=== PATIENT | female | born 1975 | race Two or more races ===

== ENCOUNTER 2020-04-25 11:34 | Outpatient (REF) | payer OTHER, SELFPAY ==
[2020-04-25 13:58] LABS: MANUAL DIFF FLAG NO
[2020-04-25 14:09] LABS: Basophils Percent Auto 0.6 % (0-2); Eosinophils Absolute Auto 0.2 X10*3/uL (0.0-0.4); Eosinophils Percent Auto 2.5 % (0-4); Hematocrit 38.7 % (37-47); Hemoglobin 12.3 g/dl (12.0-16.0); Imm Gran Abs Auto 0.02 X10*3/uL (0.00-0.03); Imm Gran Pct Auto 0.3 % (0.0-0.4); Lymphocytes Absolute Auto 2.4 X10*3/uL (1.2-4.9); Lymphocytes Percent Auto 35.4 % (20-40); Mean Corpuscular HGB Conc 31.8 g/dl (31.0-35.0); Mean Corpuscular Volume 94.4 fL (80-98); Monocytes Absolute Auto 0.4 X10*3/uL (0.1-1.2); Neutrophils Absolute Auto 3.8 X10*3/uL (2.0-8.3); Neutrophils Percent Auto 55.2 % (45-73); Platelet Count 259 X10*3/uL (160-400); White Blood Count 6.8 X10*3/uL (4.8-10.8)
[2020-04-25 14:37] LABS: Alanine Aminotransferase 9 U/L (0-31); Albumin Level 4.3 g/dL (3.5-5.0); Alkaline Phosphatase 57 U/L (39-117); Anion Gap 10 (12-20); Aspartate Amino Transferase 13 U/L (5-31); Bilirubin Direct < 0.2 mg/dL (0.0-0.5); Bilirubin Total 0.2 mg/dL (0.0-1.0); Blood Urea Nitrogen 13 mg/dL (9-16); Carbon Dioxide 31 mmol/L (22-29); Chloride 102 mmol/L (96-108); Estimated Glomerular Filt Rate > 60; Glucose Random 80 mg/dL (60-115); Potassium 4.2 mmol/l (3.3-5.1); Rheumatoid Factor < 15.0 IU/mL (<15.0); Sodium 139 mmol/L (135-145); Total Protein 7.1 g/dL (6.5-8.0)
[2020-04-25 14:45] LABS: Ferritin 25 ng/mL (10-250)
[2020-04-25 15:05] LABS: Erythrocyte Sedimentation Rate 5 MM/HR (0-20)
[2020-04-26 05:37] LABS: Lyme Abs Screen <0.90 index
[2020-04-29 13:02] LABS: Vitamin D 25-OH, D2 <4 ng/mL; Vitamin D 25-OH, D3 32 ng/mL; Vitamin D 25-OH, Total 32 ng/mL (30-100)
== END 2020-04-25 11:35 | disposition home or self-care (01) ==
LOC: HO.HMGCLDS 11:34
PROVIDERS: PCP Internal Medicine; Visit Provider Internal Medicine
DX: M19.90 Unspecified osteoarthritis, unspecified site (principal); Z82.61 Family history of arthritis
CPT/HCPCS: 36415; 80048; 80076; 82306; 82728; 85025; 85652; 86431; 86618

== ENCOUNTER 2021-04-11 13:15 | Outpatient (REF) | payer OTHER, SELFPAY ==
[2021-04-11 15:43] LABS: COVID-19 Test Positive (Negative)
== END 2021-04-11 13:16 | disposition home or self-care (01) ==
LOC: HO.LAB 13:15
PROVIDERS: Visit Provider Internal Medicine
DX: Z20.822 Contact with and (suspected) exposure to COVID-19 (principal)
CPT/HCPCS: 87635; C9803

== ENCOUNTER 2021-05-16 14:05 | Outpatient (REF) | payer OTHER, SELFPAY ==
[2021-05-17 03:39] LABS: CT PCR NOT DETECTED (Not Detect.); NG PCR NOT DETECTED (Not Detect.)
[2021-05-17 09:21] LABS: BV Int Neg Control Negative (Negative); BV Int Pos Control Positive (Positive)
[2021-05-19 04:12] LABS: HPV mRNA E6/E7 rflx Not Detected (Not Detected)
== END 2021-05-16 14:06 | disposition home or self-care (01) ==
LOC: HO.LAB 14:05
PROVIDERS: Visit Provider Advanced Practice Midwife
DX: Z01.419 Encounter for gynecological examination (general) (routine) without abnormal findings (principal); Z11.51 Encounter for screening for human papillomavirus (HPV); Z20.2 Contact with and (suspected) exposure to infections with a predominantly sexual mode of transmission
CPT/HCPCS: 87480; 87491; 87510; 87591; 87624; 87660; 88142

== ENCOUNTER 2021-12-05 03:37 | Emergency (ER) | payer OTHER, SELFPAY ==
[2021-12-05 03:46] VITALS: BP 128/74; PULSE 69; RESP 21; TEMP 36.8; O2SAT 98; BMI 26.4
--- NOTE | 2021-12-05 04:13 | ED.BACK ---
HPI - Back Pain/Injury General Chief Complaint: Back Pain/Injury Stated Complaint: Back pain Time Seen by Provider: 12/05/21 03:57 Source: patient and other (Significant other, Dl who works here as a mobile security specialist) Mode of arrival: wheelchair Limitations: no limitations History of Present Illness HPI Narrative: 46-year-old female who presents emergency department for evaluation of lower back pain with pain radiating down both legs. 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 The patient states she had to squat down for approximately 10 minutes. When she stood up she developed immediate pain in her lower back. She states that the pain is been constant since onset and is gotten progressively worse. She states the pain is a sharp pain is currently 10/10. The pain does radiate down both legs to her feet. She states she does feel weakness in both of her legs and is having difficulty walking secondary to her pain. She states she gets infrequent back pain but had similar lower back pain radiating down both legs approximately 2 years prior. She denied loss of bowel or bladder control she denied being ill in any way prior to squatting down. She states that she has had occasional chills but denied fevers. She denied rhinorrhea, sore throat, cough, chest pain, shortness of breath. She denied loss of bowel or bladder control. She did take naproxen and ibuprofen with no relief of her discomfort. MD elicited complaint: back pain and back injury Pertinent past history: prior back pain (Infrequent back pain, similar episode 2 years prior) Onset (ago): day(s) (2) Timing: constant Severity: severe Pain scale (0-10): 10 Similar Symptoms Previously: Yes (2 years prior) Quality: sharp Location: lumbar spine Radiation: left leg below the knee and right leg below the knee Exacerbating factors: movement, sitting upright and walking Relieving factors: none Context: bending (Squatting for 10 minutes, at work during an active shooter drill) Associated symptoms: weakness, difficulty walking and chills Work related injury: Yes Related Data Home Medications Medication Instructions Recorded Confirmed fexofenadine [Sandra Allergy] PO DAILY 01/30/21 10/31/21 Previous Rx's Medication Instructions Recorded cyclobenzaprine 5 mg tablet 5 mg PO BEDTIME 30 days #30 tabs 01/30/21 metronidazole 500 mg tablet 500 mg PO BID 7 days #14 tabs 05/18/21 cyclobenzaprine 5 mg tablet 5 mg PO TID PRN muscle spasm or 12/05/21 pain #14 tabs morphine 15 mg immediate release 15 mg PO Q4-6H PRN pain #14 tabs 12/05/21 tablet Allergies Allergy/AdvReac Type Severity Reaction Status Date / Time No Known Allergies Allergy Verified 12/05/21 03:50 [No Known Allergies*] Review of Systems Review of Systems: Yes all other systems are reviewed and are negative REPLACED BY [facility] Past Medical History REPLACED BY [facility] Narrative: Past medical history: None. Past surgical history: Bilateral tubal ligation. 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 She denies tobacco use. She occasionally drinks alcohol. She denies drug use. Surgical History History of breast implant History of tubal ligation Status post dilatation and curettage Family History Family History Father No problems noted. Mother No problems noted. Son No problems noted. Daughter No problems noted. Maternal Aunt Diabetes mellitus Social History Social History Housing: House Patient Tobacco Use Status: Never used Tobacco e-Cigarette/Vaping Use: Never Used Second Hand Smoke Exposure: No Advance Directives: No Current occupational status: employed Cognitive needs: No Hearing needs: No Vision needs: Yes Physical Exam Vital Signs: Vital Signs: Last Vital Signs Temp 98.2 F 12/05/21 03:46 Pulse 69 12/05/21 03:46 Resp 21 H 12/05/21 03:46 BP 128/74 12/05/21 03:46 Pulse Ox 98 12/05/21 03:46 O2 Del Method 12/05/21 03:46 BMI result Body Mass Index 26.4 Const: Other: Awake, alert, female patient, pleasant, cooperative she appears to be in distress secondary to her back pain HEENT: Head: Yes normal to inspection, Yes normocephalic and Yes atraumatic Ears: external ears normal General nose exam: Normal external nose present Face and sinus: Yes normal facial exam Mouth: Normal oral and palatal mucosa present Throat: Yes posterior oropharynx normal Eyes: General: appearance normal, both eyes and all related structures Pupils: Equal, round and reactive pupils present Neck: Neck: Yes normal visual inspection, Yes no lymphadenopathy, Yes trachea midline and Yes supple Chest: Chest palpation & inspection: normal inspection of the chest and normal palpation of entire chest wall Resp: Effort & Inspection: normal respiratory effort and able to speak in complete sentences Auscultation: clear to auscultation bilaterally Cardio: Rate: regular rate Rhythm: regular rhythm Heart sounds: S1 normal heart sound present, S2 normal heart sound present and no murmurs GI: Inspection: Yes normal to inspection Palpation (GI): Soft to palpation, nontender and no guarding Auscultation: normal bowel sounds Back/Spine/Pelvis: Other: Patient has tenderness palpation of her paraspinal muscles lumbar sacral area, there is no point tenderness with palpation over her lower vertebrae, she does have significant tenderness with palpation over her SI joints bilaterally. She does have increased pain with bilateral straight leg raise. Skin: General skin exam: no rashes or lesions noted Neuro: Cranial nerves: Yes CN's II-XII intact bilaterally and Yes Equal, round and reactive pupils present Cognition (Neuro): normal cognition Motor exam (neuro): Other motor observations present (Upper ext strength is normal, lower extremity strength is limited pain) Extrem: General: Yes normal to inspection Psych: Appearance: grossly normal Speech and movement: Normal speech and movement present Affect: normal affect Attitude: cooperative Thought process: Normal thought process present Thought content: Normal thought content present Course Course Course Narrative: 46-year-old female who presents emergency department for evaluation of 2 days of lower back pain, the pain started yesterday while she was at work, and occurred when she stood up from a squatting position when she was participating an active shooter drill. Patient's pain got progressively worse and is now 10/10. Patient has tenderness palpation of her paraspinal muscles lumbar sacral area with increased tenderness over her SI joints bilaterally. She also has positive straight leg raise bilaterally. Differential includes but is not limited to musculoskeletal strain, SI joint injury, disc injury pain. Patient was treated with Toradol 30 mg IV and morphine 4 mg IV. Ice was also applied to her lower back. 0531: Patient got some relief with the above treatment, her pain went from 10/10 to 8/10. She was ordered to get a 2nd dose of morphine 4 mg IV with Zofran 4 mg IV. She was also ordered to get cyclobenzaprine 5 mg orally. 0621: The patient is feeling significant better the above treatment. Patient was advised to take Tylenol and ibuprofen and for pain not relieved by these 2 medications she was prescribed morphine. She is also given prescription for cyclobenzaprine. Patient was given printed and verbal instructions discharged home. She was also given a work note. Discharge Plan Discharge Clinical Impression: Lumbar radicular pain Lumbar back sprain Qualifiers: Encounter type: initial encounter Qualified Code(s): S33.5XXA - Sprain of ligaments of lumbar spine, initial encounter Instructions: Acute Low Back Pain (ED), Lumbar Radiculopathy (ED) Additional Instructions: Back Pain Discharge Instructions: Take Motrin (ibuprofen) 200 mg pills, 2 pills every 6 hours as needed for pain. Take Tylenol (acetaminophen) 500 mg pills, 2 pills every 6 hours as needed for pain. For pain not relieved by ibuprofen or Tylenol take morphine 15 mg pills, 1 pill every 4 hours as needed for pain. This medication will make you sleepy, do not drive or work while taking this medication. Morphine is a narcotic medication and can be addicting. If you are concerned about addiction you can ask the pharmacist for less pills or do not get this prescription filled. Take Flexeril (cyclobenzaprine) 10 mg pills, 1 pill every 8 hours as needed for pain or muscle spasm. This is a prescription medication. This medication will make you sleepy, therefore do not drive or work while taking this medication. Apply ice for 15 minutes to the area that hurts on your back for 15 minutes. Do this 4-6 times a day to help reduce the pain in your back. Continue with normal activities as tolerated since staying in bed and not moving around will make your pain worse. You can also try over the counter lidocaine patches as directed on the box to help with the pain. Please return to the Emergency Department or see your doctor immediately if your symptoms get worse or if you develop any new symptoms that are concerning you. Follow up with your doctor in 2 day. Please read the other printed discharge instructions on back pain. Prescriptions: New morphine 15 mg tablet 15 mg PO Q4-6H PRN (Reason: pain) Qty: 14 0RF Rx Instructions: Patient may request partial fill; Partial Fill upon patient request. cyclobenzaprine 5 mg tablet 5 mg PO TID PRN (Reason: muscle spasm or pain) Qty: 14 0RF No Action metronidazole 500 mg tablet 500 mg PO BID 7 Days Qty: 14 0RF Rx Instructions: Take with food, Avoid alcohol and vinegar products fexofenadine [Sandra Allergy] PO DAILY cyclobenzaprine 5 mg tablet 5 mg PO BEDTIME 30 Days Qty: 30 0RF
[2021-12-05] MEDS: Morphine Sulfate 4 MG/ML CARTRIDGE IVPUSH ×2 (04:29→05:35)
[2021-12-05] MEDS: Ketorolac Tromethamine 15 MG/ML VIAL 30 MG IVPUSH (04:29)
[2021-12-05] MEDS: ondansetron HCL 4 MG/2 ML VIAL IVPUSH (05:35)
[2021-12-05] MEDS: Cyclobenzaprine HCl 5 MG TABLET PO (05:35)
[2021-12-05 06:00] VITALS: BP 99/56; PULSE 59; O2SAT 98
== END 2021-12-05 07:02 | disposition home or self-care (01) ==
PROVIDERS: Emergency Provider Emergency Medicine Emergency Medical Services; PCP Internal Medicine
DX: M54.50 Low back pain, unspecified (principal); Z79.899 Other long term (current) drug therapy
CPT/HCPCS: 96374; 96375; 96376; 99283; 99284; J1885; J2270; J2405

== ENCOUNTER 2022-03-02 09:11 | Outpatient (REF) | payer OTHER, SELFPAY ==
[2022-03-02 09:58] LABS: MANUAL DIFF FLAG NO
[2022-03-02 10:12] LABS: Basophils Percent Auto 0.4 % (0-2); Eosinophils Absolute Auto 0.1 X10*3/uL (0.0-0.4); Eosinophils Percent Auto 2.5 % (0-4); Hematocrit 36.6 % (37.0-47.0); Imm Gran Abs Auto 0.02 X10*3/uL (0.00-0.03); Imm Gran Pct Auto 0.4 % (0.0-0.4); Lymphocytes Absolute Auto 0.8 X10*3/uL (1.2-4.9); Lymphocytes Percent Auto 15.4 % (20-40); Mean Corpuscular HGB Conc 32.8 g/dl (31.0-35.0); Mean Corpuscular Hemoglobin 30.4 pg (27.0-33.0); Mean Corpuscular Volume 92.7 fL (80.0-98.0); Mean Platelet Volume 9.9 fL (9.4-12.3); Monocytes Absolute Auto 0.5 X10*3/uL (0.1-1.2); Monocytes Percent Auto 10.1 % (2-11); Neutrophils Absolute Auto 3.8 x10*3/uL (2.0-8.3); Neutrophils Percent Auto 71.2 % (45-73); Platelet Count 223 X10*3/uL (160-400); Red Blood Count 3.95 X10*6/uL (4.20-5.50); Red Cell Distribution Width 13.2 % (11.0-16.0); White Blood Count 5.3 X10*3/uL (4.8-10.8)
[2022-03-02 10:26] LABS: Estimated Average Glucose 105 mg/dL; Hemoglobin A1c % 5.3 %
[2022-03-02 11:01] LABS: Alanine Aminotransferase 12 U/L (0-31); Albumin Level 3.9 g/dL (3.5-5.0); Alkaline Phosphatase 50 U/L (39-117); Anion Gap 12 (12-20); Aspartate Amino Transferase 12 U/L (5-31); Bilirubin Total 0.3 mg/dL (0.0-1.0); Blood Urea Nitrogen 13 mg/dL (9-16); Calcium 8.9 mg/dL (8.4-10.2); Carbon Dioxide 25 mmol/L (22-29); Chloride 102 mmol/L (96-108); Cholesterol 181 mg/dL; Estimated Glomerular Filt Rate > 60; Ferritin 37 ng/mL (10-250); Glucose Fasting 96 mg/dL (60-99); HDL Cholesterol 62 mg/dL; LDL Cholesterol Calculated 104 mg/dl; Sodium 135 mmol/L (135-145); TSH reflex Free T4 1.28 uIU/mL (0.32-4.0); Total Protein 6.6 g/dL (6.5-8.0); Triglycerides 77 mg/dL
[2022-03-02 11:13] LABS: Vitamin B12 497 pg/mL (200-900)
== END 2022-03-02 09:12 | disposition home or self-care (01) ==
LOC: HO.LAB 09:11
PROVIDERS: PCP Internal Medicine; Visit Provider Internal Medicine
DX: Z00.01 Encounter for general adult medical examination with abnormal findings (principal); E66.3 Overweight; R20.2 Paresthesia of skin; Z91.09 Other allergy status, other than to drugs and biological substances
CPT/HCPCS: 36415; 80053; 80061; 82607; 82728; 83036; 84443; 85025

== ENCOUNTER 2022-03-20 09:11 | Outpatient (REF) | payer OTHER, SELFPAY ==
--- NOTE | ~2022-03-20 | MM_ITS ---
EXAMINATION: MM SCREENING DIGITAL BREAST TOMOSYNTHESIS, BILATERAL CLINICAL INFORMATION: Screening. Asymptomatic. The lifetime risk of breast cancer based on the Tyrer-Cuzick Model is 18%. COMPARISON: Mammography: 08/16/2017 (baseline) TECHNIQUE: Digital mammography is performed in craniocaudal and mediolateral oblique views along with computer-aided detection (CAD). Digital breast tomosynthesis is performed in implant-displaced craniocaudal and implant-displaced mediolateral oblique views along with computer-aided detection (CAD). Synthesized 2D images are generated from the tomosynthesis. FINDINGS: The breasts are heterogeneously dense, which may obscure small masses (ACR BI-RADS breast composition Category c). There are bilateral implants. Implant contours are smooth. The parenchymal pattern is similar to prior exam. There is stable nodular asymmetry posterior medial left breast on CC view. No developing density or architectural abnormality. Scattered bilateral benign round calcifications anterior breasts again noted. No abnormal calcifications. The axilla and skin contours are unremarkable. No significant changes. MM/MM tomosynthesis screen imp BI IMPRESSION: No mammographic evidence of malignancy. ASSESSMENT: BI-RADS 2: Benign RECOMMENDATION: Routine annual mammography screening. This patient's information was entered into a reminder system with a target due date for their next mammogram.
== END 2022-03-20 09:12 | disposition home or self-care (01) ==
LOC: HO.MAMMO 09:11
PROVIDERS: PCP Internal Medicine; Visit Provider Internal Medicine
DX: Z12.31 Encounter for screening mammogram for malignant neoplasm of breast (principal)
CPT/HCPCS: 77063; 77067

== ENCOUNTER 2022-05-15 11:42 | Outpatient (REF) | payer OTHER, SELFPAY ==
--- NOTE | 2022-05-15 09:30 | EMG_ITS ---
Please see scanned EMG / Nerve Conduction Report. MTDD
== END 2022-05-15 11:43 | disposition home or self-care (01) ==
LOC: HO.NEURO 11:42
PROVIDERS: PCP Internal Medicine; Visit Provider Internal Medicine
DX: R20.2 Paresthesia of skin (principal)
CPT/HCPCS: 95885; 95909

== ENCOUNTER → 2022-07-02 07:31 | Outpatient (BNVA) | payer OTHER, SELFPAY | PROVIDERS: PCP Internal Medicine; Visit Provider Psychiatry & Neurology Neurology | DX: Z13.89 Encounter for screening for other disorder (principal) ==

== ENCOUNTER 2022-07-29 13:46 | Emergency (ER) | payer OTHER, SELFPAY ==
--- NOTE | ~2022-07-29 | XR_ITS ---
EXAMINATION: XR CHEST CLINICAL INFORMATION: Syncope. COMPARISON: None available. TECHNIQUE: 2 views of the chest were obtained. FINDINGS: No significant abnormality is noted involving the heart, lungs, mediastinum, bony thorax or soft tissues. XR/XR chest 2V IMPRESSION: Unremarkable examination.
[2022-07-29 14:27] VITALS: BP 131/73; PULSE 87; RESP 16; TEMP 36.9; O2SAT 100; BMI 26.1
--- NOTE | 2022-07-29 14:30 | ECG_ITS ---
Test Reason : syncopee Blood Pressure : / mmHG Vent. Rate : 083 BPM Atrial Rate : 083 BPM P-R Int : 164 ms QRS Dur : 106 ms QT Int : 398 ms P-R-T Axes : 048 008 -13 degrees QTc Int : 467 ms Sinus rhythm with artifact Poor data quality No previous ECGs available Referred By: Generic ED Physician Electronically Signed By:Devin Del Angel
--- NOTE | 2022-07-29 15:01 | ED.SYNCOPE ---
HPI - Syncope General Chief Complaint: Syncope Stated Complaint: fall l arm inj Time Seen by Provider: 07/29/22 14:37 Source: patient Mode of arrival: ambulatory Limitations: no limitations History of Present Illness HPI narrative: Patient is a 47-year-old female presenting after syncopal episode last night. Patient reports that she had just finished going to the bathroom and was sitting on the toilet when she had a syncopal episode. Patient states that her significant other was home and heard her. She reports that afterwards she was diaphoretic and clammy. She also reports 2 episodes of vomiting last night and 1 episode of vomiting this morning. She denies any abdominal pain, diarrhea, or constipation. She reports that her daughter recently had vomiting and diarrhea as well. She denies any chest pain, shortness of breath, headache, back pain, or calf pain. She denies any history of DVT or PE. She denies any previous episodes of syncope. She denies any feeling of dizziness or lightheadedness prior to syncopal episode. She reports that for the past 3 days she has had left lateral neck pain radiating up to her left ear, down her left shoulder and left arm to her elbow. She denies any falls, injury, or trauma preceding her neck pain. She denies any numbness or tingling to her left arm. She has been taking 400 mg of ibuprofen every 4 hours for her neck pain with little relief. Related Data Home Medications Medication Instructions Recorded Confirmed fexofenadine [Sandra Allergy] PO DAILY 01/30/21 02/22/22 fluticasone propionate 50 1 spray intranasal DAILY 07/02/22 mcg/actuation nasal spray,suspension multivitamin 1 tab PO DAILY 07/02/22 Previous Rx's Medication Instructions Recorded gabapentin 100 mg capsule See Rx Instructions PO BEDTIME #90 07/02/22 caps lidocaine 5 % topical patch 1 patch topical DAILY neck pain 07/29/22 #15 ea methocarbamol 500 mg tablet 500 mg PO Q8H PRN neck spasms #12 07/29/22 tabs ondansetron 4 mg disintegrating 4 mg PO Q8H PRN nausea and 07/29/22 tablet vomiting #12 tabs prednisone 20 mg tablet 40 mg PO DAILY #10 tabs 07/29/22 Allergies Allergy/AdvReac Type Severity Reaction Status Date / Time Seasonal Allergies Allergy Mild Sneezing Verified 07/29/22 13:02 Review of Systems Review of Systems: Yes all other systems are reviewed and are negative [facility] Past Medical History Medical History (Updated 07/29/22 @ 16:48 by Gertrude Charles NP) Nocturnal leg cramps Surgical History History of breast implant History of tubal ligation Status post dilatation and curettage Family History Family History Father No problems noted. Mother No problems noted. Son No problems noted. Daughter No problems noted. Maternal Aunt Diabetes mellitus Social History Social History Housing: House Alcohol intake: never Patient Tobacco Use Status: Never used Tobacco Smoked in Last 30 Days: No e-Cigarette/Vaping Use: Never Used Second Hand Smoke Exposure: No Use of substances other than those prescribed or required for medical reasons: No Advance Directives: No Advance Directives Information Provided: Yes Patient : No Current occupational status: employed Cognitive needs: No Hearing needs: No Vision needs: Yes Physical Exam Vital Signs: Vital Signs: Last Vital Signs Temp 98.5 F 07/29/22 14:27 Pulse 84 07/29/22 15:42 Resp 16 07/29/22 14:27 BP 122/78 07/29/22 15:42 Pulse Ox 94 07/29/22 15:35 O2 Del Method Room Air 07/29/22 15:35 BMI result Body Mass Index 26.1 Appearance: Alert. Oriented X3. No acute distress. Head: normocephalic, atraumatic. Eyes: Pupils equal, round and reactive to light. ENT: Pharynx normal. No tonsillar swelling or exudate. Neck: Normal inspection. Neck supple. No midline c-spine tenderness. CVS: Normal heart rate and rhythm. Pulses normal. Respiratory: No respiratory distress. Breath sounds normal. Abdomen: Soft and nontender. +BS x4 Skin: Skin warm and dry. Normal skin color. Normal skin turgor. No rashes. Extremities: Tenderness to left lateral neck and trapezius. Full range of motion to left shoulder and elbow. DTRs 2+ bilaterally. No lower extremity edema. No joint swelling. Neuro/psych: Oriented X 3. No motor deficit. No sensory deficit. CN II-XII intact. Normal speech and cognition. Medical Decision Making Medical Decision Making [facility] Narrative: 47-year-old female presenting after syncopal episode last night, also complaining of 3 days of left lateral neck and shoulder pain radiating down left upper arm to elbow. Considered ACS, arrhythmia, vasovagal episode, metabolic derangement, anemia, orthostatic hypotension, . Considered PE, less likely, PERC negative. Considered subarachnoid hemorrhage, less likely as patient denies headache. Ukrainian Syncope Risk Score very low. Workup in the ER to this point all negative, likely vasovagal episode. Patient discharged home and advised to follow up with PCP. Will treat cervical radiculopathy with short course of prednisone, robaxin, and lidocaine patches. Advised patient to continue use of ibuprofen per package instructions as well as ice and gentle stretching exercises. Differential Diagnosis Differential Diagnoses: The differential diagnosis associated with the presentation includes See above note. Admission/Observation Consideration of admission/observation: Escalation of care including admission/observation considered Ukrainian Syncope Risk Score -2 (very low) Lab Data [facility] Lab Attestation statement: I reviewed the patient's lab results. 07/29/22 15:16 07/29/22 15:16 Labs: Lab Results 07/29/22 07/29/22 07/29/22 Range/Units 15:16 15:16 15:16 WBC 7.3 (4.8-10.8) X10*3/uL RBC 4.35 (4.20-5.50) X10*6/uL Hgb 13.0 (12.0-16.0) g/dl Hct 39.5 (37.0-47.0) % MCV 90.8 (80.0-98.0) fL MCH 29.9 (27.0-33.0) pg MCHC 32.9 (31.0-35.0) g/dl RDW 13.0 (11.0-16.0) % Plt Count 230 (160-400) X10*3/uL MPV 9.7 (9.4-12.3) fL Immature Gran % (Auto) 0.1 (0.0-0.4) % Neut % (Auto) 87.1 H (45-73) % Lymph % (Auto) 8.7 L (20-40) % Richardson % (Auto) 3.9 (2-11) % Eos % (Auto) 0.1 (0-4) % Baso % (Auto) 0.1 (0-2) % Lymph # (Auto) 0.6 L (1.2-4.9) X10*3/uL Richardson # (Auto) 0.3 (0.1-1.2) X10*3/uL Eos # (Auto) 0.0 (0.0-0.4) X10*3/uL Baso # (Auto) 0.0 (0.0-0.2) X10*3/uL Abs Immat Gran (auto) 0.01 (0.00-0.03) X10*3/uL Absolute Neuts (auto) 6.3 (2.0-8.3) x10*3/uL Absolute Nucleated RBC 0.000 (0.0-0.012) X10*3/uL Nucleated RBC % (auto) 0.0 (0.0-0.2) /100WBC Sodium 138 (135-145) mmol/L Potassium 4.0 (3.3-5.1) mmol/L Chloride 104 (96-108) mmol/L Carbon Dioxide 27 (22-29) mmol/L Anion Gap 11 L (12-20) BUN 18 H (9-16) mg/dL Creatinine 0.82 (0.5-1.4) mg/dL Estim Creat Clear Calc 80.8 Estimated GFR > 60 Random Glucose 101 (60-115) mg/dL Calcium 8.8 (8.4-10.2) mg/dL Magnesium 1.9 (1.6-2.6) mg/dL Total Bilirubin 0.7 (0.0-1.0) mg/dL Direct Bilirubin 0.2 (0.0-0.5) mg/dL AST 13 (5-31) U/L ALT 10 (0-31) U/L Alkaline Phosphatase 52 (39-117) U/L Troponin I High Sens (<3.5-17.0) ng/L Total Protein 6.6 (6.5-8.0) g/dL Albumin 4.1 (3.5-5.0) g/dL Urine Color Urine Appearance Urine pH (5.0-9.0) Ur Specific Mclean (1.005-1.025) Urine Protein (Neg-Trace) mg/dL Urine Glucose (UA) (Negative) mg/dL Urine Ketones (Negative) mg/dL Urine Blood (Negative) Urine Nitrite (Negative) Ur Leukocyte Esterase (Negative) Urine Test (NEGATIVE) COVID-19 (JESSICA) (Negative) COVID-19 Clin Com Influenza Type A (SUZETTE) (Negative) Influenza Type B (SUZETTE) (Negative) Influenza A & B Note 07/29/22 07/29/22 07/29/22 Range/Units 15:16 15:18 15:18 WBC (4.8-10.8) X10*3/uL RBC (4.20-5.50) X10*6/uL Hgb (12.0-16.0) g/dl Hct (37.0-47.0) % MCV (80.0-98.0) fL MCH (27.0-33.0) pg MCHC (31.0-35.0) g/dl RDW (11.0-16.0) % Plt Count (160-400) X10*3/uL MPV (9.4-12.3) fL Immature Gran % (Auto) (0.0-0.4) % Neut % (Auto) (45-73) % Lymph % (Auto) (20-40) % Richardson % (Auto) (2-11) % Eos % (Auto) (0-4) % Baso % (Auto) (0-2) % Lymph # (Auto) (1.2-4.9) X10*3/uL Richardson # (Auto) (0.1-1.2) X10*3/uL Eos # (Auto) (0.0-0.4) X10*3/uL Baso # (Auto) (0.0-0.2) X10*3/uL Abs Immat Gran (auto) (0.00-0.03) X10*3/uL Absolute Neuts (auto) (2.0-8.3) x10*3/uL Absolute Nucleated RBC (0.0-0.012) X10*3/uL Nucleated RBC % (auto) (0.0-0.2) /100WBC Sodium (135-145) mmol/L Potassium (3.3-5.1) mmol/L Chloride (96-108) mmol/L Carbon Dioxide (22-29) mmol/L Anion Gap (12-20) BUN (9-16) mg/dL Creatinine (0.5-1.4) mg/dL Estim Creat Clear Calc Estimated GFR Random Glucose (60-115) mg/dL Calcium (8.4-10.2) mg/dL Magnesium (1.6-2.6) mg/dL Total Bilirubin (0.0-1.0) mg/dL Direct Bilirubin (0.0-0.5) mg/dL AST (5-31) U/L ALT (0-31) U/L Alkaline Phosphatase (39-117) U/L Troponin I High Sens < 2.7 (<3.5-17.0) ng/L Total Protein (6.5-8.0) g/dL Albumin (3.5-5.0) g/dL Urine Color Urine Appearance Urine pH (5.0-9.0) Ur Specific Mclean (1.005-1.025) Urine Protein (Neg-Trace) mg/dL Urine Glucose (UA) (Negative) mg/dL Urine Ketones (Negative) mg/dL Urine Blood (Negative) Urine Nitrite (Negative) Ur Leukocyte Esterase (Negative) Urine Test (NEGATIVE) COVID-19 (JESSICA) Negative (Negative) COVID-19 Clin Com See Note Influenza Type A (SUZETTE) Negative (Negative) Influenza Type B (SUZETTE) Negative (Negative) Influenza A & B Note See Note 07/29/22 07/29/22 Range/Units 15:55 15:55 WBC (4.8-10.8) X10*3/uL RBC (4.20-5.50) X10*6/uL Hgb (12.0-16.0) g/dl Hct (37.0-47.0) % MCV (80.0-98.0) fL MCH (27.0-33.0) pg MCHC (31.0-35.0) g/dl RDW (11.0-16.0) % Plt Count (160-400) X10*3/uL MPV (9.4-12.3) fL Immature Gran % (Auto) (0.0-0.4) % Neut % (Auto) (45-73) % Lymph % (Auto) (20-40) % Richardson % (Auto) (2-11) % Eos % (Auto) (0-4) % Baso % (Auto) (0-2) % Lymph # (Auto) (1.2-4.9) X10*3/uL Richardson # (Auto) (0.1-1.2) X10*3/uL Eos # (Auto) (0.0-0.4) X10*3/uL Baso # (Auto) (0.0-0.2) X10*3/uL Abs Immat Gran (auto) (0.00-0.03) X10*3/uL Absolute Neuts (auto) (2.0-8.3) x10*3/uL Absolute Nucleated RBC (0.0-0.012) X10*3/uL Nucleated RBC % (auto) (0.0-0.2) /100WBC Sodium (135-145) mmol/L Potassium (3.3-5.1) mmol/L Chloride (96-108) mmol/L Carbon Dioxide (22-29) mmol/L Anion Gap (12-20) BUN (9-16) mg/dL Creatinine (0.5-1.4) mg/dL Estim Creat Clear Calc Estimated GFR Random Glucose (60-115) mg/dL Calcium (8.4-10.2) mg/dL Magnesium (1.6-2.6) mg/dL Total Bilirubin (0.0-1.0) mg/dL Direct Bilirubin (0.0-0.5) mg/dL AST (5-31) U/L ALT (0-31) U/L Alkaline Phosphatase (39-117) U/L Troponin I High Sens (<3.5-17.0) ng/L Total Protein (6.5-8.0) g/dL Albumin (3.5-5.0) g/dL Urine Color Yellow Urine Appearance Clear Urine pH 5.5 (5.0-9.0) Ur Specific Mclean 1.015 (1.005-1.025) Urine Protein Negative (Neg-Trace) mg/dL Urine Glucose (UA) Negative (Negative) mg/dL Urine Ketones Negative (Negative) mg/dL Urine Blood Negative (Negative) Urine Nitrite Negative (Negative) Ur Leukocyte Esterase Negative (Negative) Urine Test NEGATIVE (NEGATIVE) COVID-19 (JESSICA) (Negative) COVID-19 Clin Com Influenza Type A (SUZETTE) (Negative) Influenza Type B (SUZETTE) (Negative) Influenza A & B Note Independent Interpretation I performed an independent interpretation of an: EKG and Plain X-Ray Interpretation: Normal sinus rhythm, rate of 77bpm, normal MT interval, normal QT interval, no ST segment elevation. I independently reviewed the chest x-ray and agree with the radiologist's interpretation. Radiology Impression Discussion of test interpretation with radiology: I have reviewed the radiologist's reading. Radiologist Impression: FINDINGS: No significant abnormality is noted involving the heart, lungs, mediastinum, bony thorax or soft tissues. XR/XR chest 2V IMPRESSION: Unremarkable examination. Tests considered The following testing was considered but not selected: Considered CT head but deferred as patient has normal neuro exam without focal findings, denies headache. Considered CT cervical spine, no midline C-spine tenderness, no injury or trauma. Prescription Management I considered prescription management with: Pain Medication Treating cervical radiculopathy with prednisone and robaxin. Discharge Plan Discharge Clinical Impression: Syncope, vasovagal, Cervical radiculopathy Patient Disposition: Home, Self-Care Instructions: Syncope (DC), Cervical Radiculopathy (ED) Additional Instructions: Return to the emergency department or call 911 if you develop chest pain, shortness of breath, have a recurrent episode of syncope, or you develop a severe headache. You should follow-up with your primary care provider regarding your symptoms today. You are being prescribed a short course of steroids as well as a muscle relaxer for your neck and shoulder pain. You should also apply ice for 10-15 minutes at a time several times daily, using caution not to apply ice directly to your skin. You are being prescribed lidocaine patches which you may wear for up to 12 hours in a 24 hour period. You should perform gentle stretching exercises for your neck several times daily. Avoid any stretches that cause or worsen her pain. Prescriptions: New prednisone 20 mg tablet 40 mg PO DAILY Qty: 10 0RF lidocaine 5 % adhesive patch,medicated 1 patch topical DAILY Qty: 15 0RF Rx Instructions: leave on most painful area for up to 12 hrs methocarbamol 500 mg tablet 500 mg PO Q8H PRN (Reason: neck spasms) Qty: 12 0RF ondansetron 4 mg tablet,disintegrating 4 mg PO Q8H PRN (Reason: nausea and vomiting) Qty: 12 0RF No Action fexofenadine [Sandra Allergy] PO DAILY fluticasone propionate 50 mcg/actuation spray,suspension 1 spray intranasal DAILY Rx Instructions: administer into each nostril multivitamin Tablet 1 tab PO DAILY gabapentin 100 mg capsule See Rx Instructions PO BEDTIME Qty: 90 2RF Rx Instructions: 1-3 caps bedtime orally bedtime;
[2022-07-29 15:23] LABS: MANUAL DIFF FLAG NO
[2022-07-29 15:25] LABS: Basophils Percent Auto 0.1 % (0-2); Eosinophils Percent Auto 0.1 % (0-4); Hematocrit 39.5 % (37.0-47.0); Imm Gran Abs Auto 0.01 X10*3/uL (0.00-0.03); Imm Gran Pct Auto 0.1 % (0.0-0.4); Lymphocytes Absolute Auto 0.6 X10*3/uL (1.2-4.9); Lymphocytes Percent Auto 8.7 % (20-40); Mean Corpuscular HGB Conc 32.9 g/dl (31.0-35.0); Mean Corpuscular Hemoglobin 29.9 pg (27.0-33.0); Mean Corpuscular Volume 90.8 fL (80.0-98.0); Mean Platelet Volume 9.7 fL (9.4-12.3); Monocytes Absolute Auto 0.3 X10*3/uL (0.1-1.2); Monocytes Percent Auto 3.9 % (2-11); Neutrophils Absolute Auto 6.3 x10*3/uL (2.0-8.3); Neutrophils Percent Auto 87.1 % (45-73); Platelet Count 230 X10*3/uL (160-400); Red Blood Count 4.35 X10*6/uL (4.20-5.50); White Blood Count 7.3 X10*3/uL (4.8-10.8)
--- NOTE | 2022-07-29 15:30 | ECG_ITS ---
Test Reason : syncopee Blood Pressure : / mmHG Vent. Rate : 077 BPM Atrial Rate : 077 BPM P-R Int : 144 ms QRS Dur : 074 ms QT Int : 386 ms P-R-T Axes : -04 041 012 degrees QTc Int : 436 ms Normal sinus rhythm Normal ECG When compared with ECG of 29-JUL-2022 14:36, Previous ECG has undetermined rhythm, needs review ST no longer depressed in Inferior leads Referred By: Gisella Peter Electronically Signed By:Devin Del Angel
[2022-07-29 15:35] VITALS: PULSE 77; O2SAT 94
[2022-07-29 15:38] VITALS: BP 134/79; PULSE 78
[2022-07-29 15:40] VITALS: BP 137/73; PULSE 78
[2022-07-29 15:40] LABS: Anion Gap 11 (12-20); Blood Urea Nitrogen 18 mg/dL (9-16); Calcium 8.8 mg/dL (8.4-10.2); Carbon Dioxide 27 mmol/L (22-29); Chloride 104 mmol/L (96-108); Creatinine Clr Calc Pharmacy 80.8; Estimated Glomerular Filt Rate > 60; Glucose Random 101 mg/dL (60-115); Sodium 138 mmol/L (135-145)
[2022-07-29 15:41] LABS: Alanine Aminotransferase 10 U/L (0-31); Albumin Level 4.1 g/dL (3.5-5.0); Alkaline Phosphatase 52 U/L (39-117); Aspartate Amino Transferase 13 U/L (5-31); Bilirubin Direct 0.2 mg/dL (0.0-0.5); Bilirubin Total 0.7 mg/dL (0.0-1.0); Magnesium 1.9 mg/dL (1.6-2.6); Total Protein 6.6 g/dL (6.5-8.0)
[2022-07-29 15:42] VITALS: BP 122/78; PULSE 84
[2022-07-29 15:48] LABS: COVID-19 Test Negative (Negative); IDNOW Serial# 9DB6401D; IDNOW Serial# BCCEAD1C; Influenza A Negative (Negative); Influenza B2 Negative (Negative)
[2022-07-29 15:53] LABS: Troponin-I High Sensitivity < 2.7 ng/L (<3.5-17.0)
[2022-07-29 16:15] LABS: Appearance Urine Clear; Color Urine Yellow; Glucose Urine UA Negative (Negative); Leukocyte Esterase Urine Negative (Negative); Nitrite Urine Negative (Negative); PH 5.5 (5.0-9.0); Specific Gravity - Urine 1.015 (1.005-1.025); Urine Blood Negative (Negative); Urine Ketones Negative (Negative); Urine Protein Negative (Neg-Trace)
[2022-07-29 16:17] LABS: UPreg QC Valid YES; Urine Pregnancy NEGATIVE (NEGATIVE)
== END 2022-07-29 17:41 | disposition home or self-care (01) ==
PROVIDERS: Registered Nurse Emergency; Emergency Provider Emergency Medicine; PCP Internal Medicine
DX: R55 Syncope and collapse (principal); M54.12 Radiculopathy, cervical region; R11.0 Nausea; Z20.822 Contact with and (suspected) exposure to COVID-19
CPT/HCPCS: 36415; 71046; 80048; 80076; 81003; 81025; 83735; 84484; 85025; 87502; 87635; 93005; 99284

== ENCOUNTER 2022-10-15 13:14 | Outpatient (AMB) | payer OTHER, SELFPAY ==
[2022-10-15 13:16] VITALS: BP 126/72; BMI 27.1
--- NOTE | 2022-10-15 13:16 | MHC.OFFVIS ---
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 She has been getting leg cramps at night and she was referred by her primary to of another physician and the suggestion was to use a medication, when she looked up the side effects and the profile on the medication she did sided that any potential benefits were not work the risks to her. She is physically active she walks and rides her bike. As regards her missed menses she thinks that it is probably normal as she is 47 approaching menopause she sometimes gets hot flashes but they are completely manageable. [facility] Medical History (Updated 10/15/22 @ 14:18 by Harini Brown CNM) Nocturnal leg cramps Surgical History (Updated 10/15/22 @ 14:18 by Harini Brown CNM) History of breast implant History of tubal ligation Status post dilatation and curettage Family History Father No problems noted. Mother No problems noted. Son No problems noted. Daughter No problems noted. Maternal Aunt Diabetes mellitus Social History Housing: House Alcohol intake: never Patient Tobacco Use Status: Never used Tobacco e-Cigarette/Vaping Use: Never Used Second Hand Smoke Exposure: No Current occupational status: employed Cognitive needs: No Hearing needs: No Vision needs: Yes Female Reproductive History Menstrual Age of Menarche: 13 Date of last menstrual period: 10/08/22 Total pregnancies: 2 Number of Living Children: 2 Date of last pap smear: 05/16/21 (wnl) Physical Exam Vital Signs: Last Vital Signs BP 126/72 10/15/22 13:16 BMI result Body Mass Index 27.1 Const General: healthy appearing, comfortable, no acute distress, well developed and alert Nutritional Appearance: average body habitus Orientation/consciousness: patient oriented x3 Limitations: no limitations HEENT Head: Yes normocephalic Neck Neck: Yes normal visual inspection Chest Chest palpation & inspection: normal inspection of the chest Breast/axilla inspection: normal inspection of the breasts and normal inspection of the axillae Breast/axilla palpation: normal palpation of the breasts and normal palpation of the axillae Resp Effort & Inspection: normal respiratory effort GI Inspection: Yes normal to inspection, No Abdominal wall edema and No distended Palpation (GI): Soft to palpation and nontender General: Yes bladder normal to palpation External Female Exam: normal external appearance and normal appearance of the urethra Speculum Exam - Vagina: normal appearance of the vagina, normal palpation and normal vaginal discharge Speculum Exam - Cervix: normal appearance of the cervix, normal palpation and nontender Bimanual exam- vagina & uterus: normal bimanual exam, normal palpation, uterine size normal, bladder normal to palpation, consistency normal, normal palpation, uterine mobility normal, uterine shape normal, No Cervical tenderness present, non-tender and no cervical motion tenderness Bimanual Exam- Adnexa, other: normal adnexae, no masses, normal and No adnexal tenderness Neuro General: patient oriented x3 Assessment & Plan Assessment & Plan (1) Nocturnal leg cramps: Code(s): G47.62 - Sleep related leg cramps (2) Paresthesia of upper extremity: Code(s): R20.2 - Paresthesia of skin (3) Cervical cancer screening: Comment: 05/16/2021 Pap equals negative with negative HPV. Code(s): Z12.4 - Encounter for screening for malignant neoplasm of cervix (4) Well woman exam with routine gynecological exam: Code(s): Z01.419 - Encounter for gynecological examination (general) (routine) without abnormal findings (5) Cervical strain: Code(s): S16.1XXA - Strain of muscle, fascia and tendon at neck level, initial encounter (6) Upper back pain: Code(s): M54.9 - Dorsalgia, unspecified (7) History of breast implant: Code(s): Z98.82 - Breast implant status (8) Breast cancer screening: Code(s): Z12.39 - Encounter for other screening for malignant neoplasm of breast Plan -----Discussed in this visit the following: healthy balanced diet, regular and consistent exercise, getting recommended health screens, doing the best she can for her particular health concerns, kegel exercises, pap smear screening and followup recommendations, mammography screening and SBE, normal changes in cycles in her life stage--- . Discussed her her mammograms they were ordered by her primary care provider and she has of standing plan to get [facility] and all she needs to do is call and she will be calling she declined another order. As regards her experience with the leg cramps and also the numbness and tingling in her arms when she wakes up and her history of neck strain. I discussed that sometimes physical therapy can be useful with neck spasms and posture which she has excellent posture. Discussed perhaps rolling a small towel to put under her neck when she sleeps to keep her body neck and head in good alignment when she moves in her bed. As regards her leg cramps I am recommend that she be careful to stretch and she has been doing that on her own as well and also that she try to make sure she is getting enough water during the day and additionally she could try magnesium 250 mg once or twice a day particularly perhaps at bedtime. She can titrate the dose to her desired effectiveness and also discussed possible looser bowels with magnesium. She had considered it before but for got about it. Pap smear was not due and she has no worries about STIs. RTC 1 year Coding Level of Care Code Est Pt Prev Care 40-64y([id number]) Diagnoses Nocturnal leg cramps G47.62 Paresthesia of upper extremity R20.2 Cervical cancer screening Z12.4 Well woman exam with routine gynecological exam Z01.419 Cervical strain S16.1XXA Upper back pain M54.9 History of breast implant Z98.82 Breast cancer screening Z12.39
== END 2022-10-15 15:25 | disposition home or self-care (01) ==
LOC: HO.HWS 13:14
PROVIDERS: PCP Internal Medicine; Visit Provider Advanced Practice Midwife
DX: Z01.419 Encounter for gynecological examination (general) (routine) without abnormal findings (principal); G47.62 Sleep related leg cramps; R20.2 Paresthesia of skin; S16.1XXA Strain of muscle, fascia and tendon at neck level, initial encounter; M54.9 Dorsalgia, unspecified; Z98.82 Breast implant status; Z12.39 Encounter for other screening for malignant neoplasm of breast
CPT/HCPCS: 99396

== ENCOUNTER → 2022-10-15 13:14 | Outpatient (BNVA) | payer OTHER, SELFPAY | PROVIDERS: PCP Internal Medicine; Visit Provider Advanced Practice Midwife ==

== ENCOUNTER 2023-02-26 14:16 | Outpatient (AMB) | payer OTHER, SELFPAY ==
[2023-02-26 14:17] VITALS: BP 126/78; PULSE 77; O2SAT 94; BMI 27.9
--- NOTE | 2023-02-26 14:17 | A.OFFPC_ITS ---
Vital Signs 02/26/23 14:17 Height 5 ft 4 in Weight 162 lb 8 oz BMI 27.9 BP 126/78 Blood Pressure Location Rt brachial Position Sitting Pulse 77 Pulse Source Pulse Oximeter Pulse Oximetry (%) 94 Oxygen Delivery Method Room Air Intake Visit Reasons: Annual PE Allergies Seasonal Allergies Allergy (Mild, Verified 02/26/23 14:17) Sneezing Medication List - Last Reconciled 02/26/23 by Cheyenne Irwin MD No Known Home Meds Tobacco use date assessed: 02/26/23 Dental Screening Dental Screen Date: 02/26/23 Did you have a dental visit in the last 12 months?: Yes Did you have a dental problem in the last 6 months where you did not have access to dental care?: No Was dental information given to patient?: Patient has dentist HPI Annual PE HPI Details Patient is a 47-year-old female came in today for physical examination Patient is slightly overweight She is established with OBGYN Pap smear and mammogram is up-to-date Labs were done early this year reviewed again patient do not have any kidney problem liver problem Fasting sugar is within normal limit and lipids are well-controlled. Does suffer from constipation but is manageable with [id number]-[id number] medications like Dulcolax Patient also grind her teeth and uses a mouth guard when remembers, she is complaining of discomfort in her ears On examination I do not see any signs of infection. [facility] Medical History Nocturnal leg cramps Surgical History History of breast implant Status post dilatation and curettage History of tubal ligation Family History Father No problems noted. Mother No problems noted. Son No problems noted. Daughter No problems noted. Maternal Aunt Diabetes mellitus Housing: House Alcohol intake: never Patient Tobacco Use Status: Never used Tobacco e-Cigarette/Vaping Use: Never Used Second Hand Smoke Exposure: No Current occupational status: employed Cognitive needs: No Hearing needs: No Vision needs: Yes Female Reproductive History Menstrual Age of Menarche: 13 Questionnaire PHQ-9 Over the last 2 weeks, how often have you been bothered by any of the following problems? 1. Little interest or pleasure in doing things: not at all 2. Feeling down, depressed, or hopeless: not at all 3. Trouble falling or staying asleep, or sleeping too much: not at all 4. Feeling tired or having little energy: several days 5. Poor appetite or overeating: not at all 6. Feeling bad about yourself - or that you are a failure or have let yourself or your family down: not at all 7. Trouble concentrating on things, such as reading the newspaper or watching television: not at all 8. Moving or speaking so slowly that other people could have noticed. Or the opposite - being so fidgety or restless that you have been moving around a lot more than usual: not at all 9. Thoughts that you would be better off or of hurting yourself in some way: not at all Total score: 1 Depression Screening Interpretation: Negative Depression Screening Done: Yes 80474 - PHQ-9 Billing: Yes Source: Developed by Drs. Juan Antonio Wilcox, Sophy Jon, Seabstian Bucio and colleagues, with an educational sukumar from [employer]. Thrive Questionnaire Date Thrive assessed: 02/26/23 I am a: Patient What is your living situation today?: I have a steady place to live Within the past 12 months, did the food you bought not last and you didn't have the money to get more?: Never true Within the past 12 months, did you worry whether your food would run out before you got money to buy more?: Never true Do you have trouble paying for medicines?: No Do you have trouble getting transportation to medical appointments?: No Do you have trouble paying your heating and electricity bill?: No Do you have trouble taking care of your child, family member or friend?: No Do you have trouble with day-to-day activities such as bathing, preparing meals, shopping, managing finances, etc.?: No Are you currently unemployed and looking for a job?: No Are you interested in more education?: No Please select the resources that you would like help with: None Currently or been in a relationship where the following occur: no concerns reported AUDIT C Alcohol Use Questionnaire (AUDIT-C) 1. How often do you have a drink containing alcohol?: Monthly or less 2. How many drinks containing alcohol do you have on a typical day when you are drinking?: 1 or 2 3. How often do you have six or more drinks on one occasion?: Never Total Score: 1 Score Reviewed/Action Taken: Yes BRII-7 AMB Questionnaire BRII-7 Date BRII - 7 assessed: 02/26/23 Feeling nervous, anxious, or on edge: 1 = Several days Not being able to stop or control worryin = Several days Worrying too much about different things: 1 = Several days Trouble relaxin = Several days Being so restless that it is hard to sit still: 1 = Several days Becoming easily annoyed or irritable: 1 = Several days Feeling afraid as if something awful might happen: 1 = Several days Total BRII-7 score (0-4 normal; 5-9 mild; 10-14 moderate; 15-21 severe): 7 Source: Developed by Drs. Juan Antonio Wilcox, Sophy Jon, Sebastian Bucio and colleagues, with an educational sukumar from [employer]. BRII-7 Assessment Billing BRII-7 Assessment Tool: BRII-7 Assessment 94106 Review of Systems Const Denies chills, Denies fever(s) and Denies headache(s) Eyes Denies blurry vision ENT Denies headache(s), Denies nasal discharge, Denies nasal obstruction, Denies odynophagia and Denies sinus pain Card Denies chest pain at rest and Denies chest pain with activity Resp Denies cough and Denies hemoptysis GI Denies diarrhea, Denies odynophagia, Denies vomiting and Denies hematemesis Reports as per HPI Musc Denies abnormal gait Skin/Breast Reports as per HPI Neuro Denies Neuro-related abnormal movements, Denies Abnormal speech present, Denies abnormal gait, Denies headache(s) and Denies Sensory deficit (Neuro) Psych Denies mood swings and Denies paranoia Endo Reports as per HPI Satish/Lymph Reports as per HPI Aller/Immun Reports as per HPI Physical exam (Primary Care) Vital Signs: Last Vital Signs Pulse 77 02/26/23 14:17 BP 126/78 02/26/23 14:17 Pulse Ox 94 02/26/23 14:17 Oxygen Delivery Method Room Air 02/26/23 14:17 BMI result Body Mass Index 27.9 Tobacco/Smoking Status: Tobacco use Status Tobacco use date assessed 02/26/23 02/26/23 14:18 Patient Tobacco Use Status Never used Tobacco 02/26/23 14:18 e-Cigarette/Vaping Use Never Used 02/26/23 14:18 PHQ-9: PHQ-9 Score PHQ-9: Total score 1 02/26/23 14:37 Depression Screening Interpretation: Negative Thrive Assessment: Date of Thrive Assessment Date Thrive assessed 02/26/23 02/26/23 14:37 Currently or been in a relationship where the following occur: no concerns reported Const General: cooperative, comfortable and no acute distress Orientation/consciousness: patient oriented x3 HENMT Head: Yes normocephalic and Yes atraumatic Eyes General: appearance normal, both eyes and all related structures Pupils: Equal, round and reactive pupils present EOM: EOMs intact bilaterally Neck Neck: Yes supple and No lymphadenopathy Thyroid: Thyroid normal Lymphatic: no lymphadenopathy noted Resp Effort & Inspection: normal respiratory effort and able to speak in complete s entences Auscultation: clear to auscultation bilaterally Cardio Heart sounds: S1 normal heart sound present and S2 normal heart sound present GI Palpation (GI): Soft to palpation and nontender Auscultation: normal bowel sounds General: Yes no CVA tenderness Back/Spine/Pelvis Back: no CVA tenderness Skin General skin exam: elasticity normal and turgor normal Neuro General: patient oriented x3 and gait normal Cranial nerves: Yes Equal, round and reactive pupils present Speech: No Abnormal speech present Sensory Exam: No Sensory deficit (Neuro) Coordination: tandem gait normal and Romberg test negative Extrem General: Yes normal exam except as noted and No edema Assessment and Plan Assessment & Plan (1) Encounter for general adult medical examination with abnormal findings: Code(s): Z00.01 - Encounter for general adult medical examination with abnormal findings (2) Overweight (BMI 25.0-29.9): Code(s): E66.3 - Overweight (3) Teeth grinding: Code(s): F45.8 - Other somatoform disorders (4) Constipation by delayed colonic transit: Code(s): K59.01 - Slow transit constipation Plan Patient is a 47-year-old female came in today for physical examination Patient is slightly overweight She is established with OBGYN Pap smear and mammogram is up-to-date Labs were done early this year reviewed again patient do not have any kidney problem liver problem Fasting sugar is within normal limit and lipids are well-controlled. Does suffer from constipation but is manageable with gxhd-[id number] medications like Dulcolax Patient also grind her teeth and uses a mouth guard when remembers, she is complaining of discomfort in her ears On examination I do not see any signs of infection. Coding Level of Care Code Est Pt Prev Care 40-64y(20148) Diagnoses Encounter for general adult medical examination with abnormal findings Z00.01 Overweight (BMI 25.0-29.9) E66.3 Teeth grinding F45.8 Constipation by delayed colonic transit K59.01 Additional Codes BRII-7 Assessment Billing - BRII-7 Assessment Tool: BRII-7 Assessment 36718 ([id number])
== END 2023-02-26 15:13 | disposition home or self-care (01) ==
PROVIDERS: Visit Provider Internal Medicine
DX: Z00.00 Encounter for general adult medical examination without abnormal findings (principal); E66.3 Overweight; F45.8 Other somatoform disorders; K59.01 Slow transit constipation
CPT/HCPCS: 99396

== ENCOUNTER 2024-02-12 09:43 | Outpatient (AMB) | payer OTHER, SELFPAY ==
--- NOTE | 2024-02-12 09:50 | MHC.OFFVIS ---
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 Unsure of what kind of cancer she may have/had. Healthcare Architect: Healthcare Architect Present (Jazmín) Allergies Seasonal Allergies Allergy (Mild, Verified 02/12/24 09:54) Sneezing HPI Comments Details: She is a premenopausal woman presenting for annual examination. Doing well with no concerns. She tries to eat healthy and stays active with exercise. Regular monthly menses, has skipped a few cycles at a time over the last year. Currently is sexually active. She denies vaginal itching and irritation. STI screening offered; she accepts. Denies family history of breast, ovarian or colon cancer. Last pap smear 2021, negative. Mammogram: 2021. Colonoscopy is up-to-date. [facility] Medical History Environmental allergies Paresthesia of lower extremity Nocturnal leg cramps Surgical History History of breast implant Status post dilatation and curettage History of tubal ligation Family History Father No problems noted. Mother No problems noted. Son No problems noted. Daughter No problems noted. Maternal Aunt Diabetes mellitus Social History Housing: House Alcohol intake: never Patient Tobacco Use Status: Never used Tobacco e-Cigarette/Vaping Use: Never Used Second Hand Smoke Exposure: No Current occupational status: employed Cognitive needs: No Hearing needs: No Vision needs: Yes Female Reproductive History Menstrual Age of Menarche: 13 Duration of menses: 3-5 days Date of last menstrual period: 02/04/24 Total pregnancies: 2 Full term: 2 Date of last pap smear: 05/16/21 (negative pap smear, negative hpv) Review of Systems Const All systems reviewed & are unremarkable except as noted in HPI and below Reports as per HPI Eyes Reports no additional complaints ENT Reports no additional complaints Card Reports no additional complaints Resp Reports no additional complaints GI Reports as per HPI and Reports no additional complaints Reports as per HPI Musc Reports no additional complaints Skin/Breast Reports as per HPI Neuro Reports no additional complaints Psych Reports no additional complaints Endo Reports no additional complaints Satish/Lymph Reports no additional complaints Aller/Immun Reports no additional complaints Physical Exam Vital Signs: Last Vital Signs BP 120/74 02/12/24 09:54 BMI result Body Mass Index 27.1 Const General: cooperative, healthy appearing, no acute distress, well developed and alert Orientation/consciousness: patient oriented x3 HEENT Head: Yes normal to inspection Eyes General: appearance normal, both eyes and all related structures Neck Neck: Yes normal visual inspection Thyroid: Thyroid normal Chest Other: Bilateral implants Chest palpation & inspection: normal inspection of the chest and other (no puckering, dimpling, peau de orange, retraction, discharge, masses) Breast/axilla inspection: normal inspection of the breasts Breast/axilla palpation: normal palpation of the breasts Resp Effort & Inspection: normal respiratory effort GI Inspection: Yes normal to inspection Palpation (GI): Soft to palpation Rectal Exam - Female: deferred General: Yes bladder normal to palpation External Female Exam: normal external appearance and normal appearance of the urethra Speculum Exam - Vagina: normal appearance of the vagina, normal palpation and normal vaginal discharge Speculum Exam - Cervix: normal appearance of the cervix and normal palpation Bimanual exam- vagina & uterus: normal bimanual exam, normal palpation, uterine size normal, bladder normal to palpation, normal palpation, non-tender and Uterus displaced on the left Bimanual Exam- Adnexa, other: no masses Skin General skin exam: no rashes or lesions noted Rashes: no rashes Neuro General: patient oriented x3 Cognition (Neuro): normal cognition Extrem General: Yes normal to inspection Psych Attitude: cooperative Thought process: Normal thought process present Assessment & Plan Assessment & Plan (1) Encounter for routine gynecological examination: Code(s): Z01.419 - Encounter for gynecological examination (general) (routine) without abnormal findings Category: Medical Qualifiers: Gynecological examination findings: abnormal findings ABSENT Qualified Code(s): Z01.419 - Encounter for gynecological examination (general) (routine) without abnormal findings Plan Discussed: Current recommendations for pap smears per ASCCP guidelines. Breast awareness and periodic breast exams. Mammogram yearly. Maintain a healthy lifestyle including a well balanced diet and routine exercise. Monitor menstrual cycles, report any unscheduled bleeding, bleeding episodes <24 days apart or heavy/prolonged menstrual bleeding. Call the office for a follow up for any concerns. Menopause verses perimenopause. Menopause is definitive of 1 year of no menses or 12 months in succession. Report any abnormal uterine bleeding in example prolonged episodes, or short intervals less than 24 days. Patient verbalizes understanding and agrees to the plan of care. She was given opportunity to ask questions and all questions were answered to the best of my ability. RTO in one year for annual district engineer examination. This note is constructed using voice recognition software. While every effort has been made to ensure accuracy, construction trench digger errors may have been included. Orders: Orders MM tomosynthesis diag imp BI Today Z12.31 - Encounter for screening mammogram for malignant neoplasm of breast Hepatitis B Core Antibody Today Z20.2 - Contact with and (suspected) exposure to infections with a predominantly sexual mode of transmission Bacterial Vaginosis Panel Today Z20.2 - Contact with and (suspected) exposure to infections with a predominantly sexual mode of transmission CT NG by PCR Today Z20.2 - Contact with and (suspected) exposure to infections with a predominantly sexual mode of transmission HIV Ab/Ag Today Z20.2 - Contact with and (suspected) exposure to infections with a predominantly sexual mode of transmission Hepatitis C Antibody Reflex Today Z20.2 - Contact with and (suspected) exposure to infections with a predominantly sexual mode of transmission Syphilis Screen Today Z20.2 - Contact with and (suspected) exposure to infections with a predominantly sexual mode of transmission Coding Level of Care Code Est Pt Prev Care 40-64y(74093) Diagnoses Encounter for gynecological examination without abnormal finding Z01.419 Gynecological examination findings: abnormal findings ABSENT
[2024-02-12 09:54] VITALS: BP 120/74; BMI 27.1
== END 2024-02-12 10:23 | disposition home or self-care (01) ==
LOC: HO.HWS 09:44
PROVIDERS: PCP Internal Medicine; Visit Provider Advanced Practice Midwife
DX: Z01.419 Encounter for gynecological examination (general) (routine) without abnormal findings (principal)
CPT/HCPCS: 99396

== ENCOUNTER 2024-02-12 09:43 | Outpatient (REF) | payer OTHER, SELFPAY ==
[2024-02-12 14:56] LABS: Bacterial Vaginosis PCR NEGATIVE (Negative); Candida Group PCR NOT DETECTED (Not Detect); Candida glab krusei PCR NOT DETECTED (Not Detect); Trichomonas vaginalis PCR NOT DETECTED (Not Detect)
[2024-02-12 17:19] LABS: CT PCR NOT DETECTED (Not Detect.); NG PCR NOT DETECTED (Not Detect.)
== END 2024-02-12 09:44 | disposition home or self-care (01) ==
LOC: HO.LAB 09:43
PROVIDERS: PCP Internal Medicine; Visit Provider Advanced Practice Midwife
DX: Z20.2 Contact with and (suspected) exposure to infections with a predominantly sexual mode of transmission (principal)
CPT/HCPCS: 0352U; 87491; 87591

== ENCOUNTER 2024-02-12 10:21 | Outpatient (REF) | payer OTHER, SELFPAY | END 2024-02-12 10:22 | disposition home or self-care (01) | LOC: HO.LNP 10:21 | PROVIDERS: Visit Provider Advanced Practice Midwife | DX: Z13.89 Encounter for screening for other disorder (principal) ==

== ENCOUNTER 2024-02-21 10:28 | Outpatient (REF) | payer OTHER, SELFPAY ==
[2024-02-22 08:44] LABS: HBc Num1 0.12 S/CO (0.00-0.79); HIV AB/AG Nonreactive (Nonreactive); HIV Num 1 0.07 S/CO (0.00-0.99); Hepatitis B Core Antibody Nonreactive (Nonreactive); ~HepC Num1 0.21 S/CO (0.00-0.79); ~Hepatitis C Antibody Nonreactive (Nonreactive)
[2024-02-22 08:52] LABS: Syphilis Screen Nonreactive (Nonreactive)
== END 2024-02-21 10:29 | disposition home or self-care (01) ==
LOC: HO.LAB 10:28
PROVIDERS: PCP Internal Medicine; Visit Provider Advanced Practice Midwife
DX: Z20.2 Contact with and (suspected) exposure to infections with a predominantly sexual mode of transmission (principal)
CPT/HCPCS: 36415; 86704; 86780; 86803; 87389

== ENCOUNTER 2024-03-03 08:44 | Outpatient (AMB) | payer OTHER, SELFPAY ==
[2024-03-03 08:45] VITALS: BP 120/78; PULSE 80; O2SAT 98; BMI 27.2
--- NOTE | 2024-03-03 08:45 | A.OFFPC_ITS ---
Vital Signs 03/03/24 08:45 Height 5 ft 4 in Weight 158 lb 6 oz BMI 27.2 BP 120/78 Blood Pressure Location Lt brachial Position Sitting Pulse 80 Pulse Source Pulse Oximeter Pulse Oximetry (%) 98 Oxygen Delivery Method Room Air Intake Visit Reasons: PE Allergies Seasonal Allergies Allergy (Mild, Verified 03/03/24 08:45) Sneezing Medication List - Last Reconciled 03/03/24 by Cheyenne Irwin MD No Known Home Meds Tobacco use date assessed: 03/03/24 Dental Screening Dental Screen Date: 03/03/24 Did you have a dental visit in the last 12 months?: Yes Did you have a dental problem in the last 6 months where you did not have access to dental care?: No Was dental information given to patient?: Patient has dentist HPI PE HPI Details Chief Complaint Patient came in for physical exam and also is complaining of Swollen and itchy right ear with possible infection. 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 - Awaiting mammogram appointment; last m ammogram in 2021. - Recent laboratory tests in July indic ate normal CBC, kidney function, liver enzymes, and no anemia or high cholesterol. Assessment and Plan 42-year-old female with a history of rec ent upper respiratory symptoms presenting with a swollen and itchy right ear, suggestive of acute otitis media. The patient reports a two-week history of a cough that has lessened in severity and denies other respiratory symptoms currently. Ear examination reveals ear wax impaction, potentially contributing to the patient's symptoms. Current lab workup from July indicates no hematological or metabolic issues, and the patient awaits mammogram scheduling. Notable for melasma, which the patient manages with topical products. 1. Acute Otitis Media Initiated treatment with an antibiotic for suspected acute otitis media. Patient instructed on the use of ibuprofen for pain and inflammation management. Encouraged to follow up if symptoms do not improve. 2. Melasma Patient continues topical treatment for melasma with noted improvement. No changes to current regimen recommended. 3. Ear Wax Impaction Advised the use of [id number] wax softening ear drops after completing antibiotic therapy. Discussed self-care to clear ear wax following its softening with warm water during showers. Patient Instructions - Take prescribed antibiotics as directe d. - Use ibuprofen for pain and inflammatio n twice daily with meals. - Obtain ear softening drops from the ph armacy after finishing antibiotics and use as instructed. - Monitor ear symptoms and return for fo llow-up if symptoms worsen or do not improve. - Await clinic-arranged mammogram and en sure scheduling is followed up. - Maintain current topical regimen for marcus crawford, noting improvements. [facility] Medical History Environmental allergies Paresthesia of lower extremity Nocturnal leg cramps Surgical History History of breast implant Status post dilatation and curettage History of tubal ligation Family History Father No problems noted. Mother No problems noted. Son No problems noted. Daughter No problems noted. Maternal Aunt Diabetes mellitus Social History Housing: House Alcohol intake: never Patient Tobacco Use Status: Never used Tobacco e-Cigarette/Vaping Use: Never Used Second Hand Smoke Exposure: No Current occupational status: employed Cognitive needs: No Hearing needs: No Vision needs: Yes Female Reproductive History Menstrual Age of Menarche: 13 Questionnaire PHQ-9 Over the last 2 weeks, how often have you been bothered by any of the following problems? 1. Little interest or pleasure in doing things: not at all 2. Feeling down, depressed, or hopeless: not at all 3. Trouble falling or staying asleep, or sleeping too much: not at all 4. Feeling tired or having little energy: not at all 5. Poor appetite or overeating: not at all 6. Feeling bad about yourself - or that you are a failure or have let yourself or your family down: not at all 7. Trouble concentrating on things, such as reading the newspaper or watching television: not at all 8. Moving or speaking so slowly that other people could have noticed. Or the opposite - being so fidgety or restless that you have been moving around a lot more than usual: not at all 9. Thoughts that you would be better off or of hurting yourself in some way: not at all Total score: 0 Depression Screening Interpretation: Negative Depression Screening Done: Yes 64502 - PHQ-9 Billing: Yes Source: Developed by Drs. Juan Antonio Wilcox, Sophy Jon, Sebastian Bucio and colleagues, with an educational sukumar from [employer]. Thrive Questionnaire Date Thrive assessed: 03/03/24 I am a: Patient What is your living situation today?: I have a steady place to live Within the past 12 months, did the food you bought not last and you didn't have the money to get more?: Never true Within the past 12 months, did you worry whether your food would run out before you got money to buy more?: Never true Do you have trouble paying for medicines?: No Do you have trouble getting transportation to medical appointments?: No Do you have trouble paying your heating and electricity bill?: No Do you have trouble taking care of your child, family member or friend?: No Do you have trouble with day-to-day activities such as bathing, preparing meals, shopping, managing finances, etc.?: No Are you currently unemployed and looking for a job?: No Are you interested in more education?: Yes Please select the resources that you would like help with: Education Currently or been in a relationship where the following occur: No concerns reported THRIVE Score: 0 AUDIT C Alcohol Use Questionnaire (AUDIT-C) 1. How often do you have a drink containing alcohol?: Never 2. How many drinks containing alcohol do you have on a typical day when you are drinking?: 1 or 2 3. How often do you have six or more drinks on one occasion?: Less than monthly Total Score: 1 Score Reviewed/Action Taken: Yes BRII-7 AMB Questionnaire BRII-7 Date BRII - 7 assessed: 03/03/24 Feeling nervous, anxious, or on edge: 0 = Not at all Not being able to stop or control worryin = Not at all Worrying too much about different things: 0 = Not at all Trouble relaxin = Not at all Being so restless that it is hard to sit still: 0 = Not at all Becoming easily annoyed or irritable: 0 = Not at all Feeling afraid as if something awful might happen: 0 = Not at all Total BRII-7 score (0-4 normal; 5-9 mild; 10-14 moderate; 15-21 severe): 0 Source: Developed by Sophy Schuster B.W. Dontrell, Sebastian Bucio and colleagues, with an educational sukumar from [employer]. BRII-7 Assessment Billing BRII-7 Assessment Tool: BRII-7 Assessment 61998 Review of Systems Const Denies chills, Denies fever(s) and Denies headache(s) Eyes Denies blurry vision ENT Denies headache(s), Denies nasal discharge, Denies nasal obstruction, Denies odynophagia and Denies sinus pain Card Denies chest pain at rest and Denies chest pain with activity Resp Denies cough and Denies hemoptysis GI Denies diarrhea, Denies odynophagia, Denies vomiting and Denies hematemesis Reports as per HPI Musc Denies abnormal gait Skin/Breast Reports as per HPI Neuro Denies Neuro-related abnormal movements, Denies Abnormal speech present, Denies abnormal gait, Denies headache(s) and Denies Sensory deficit (Neuro) Psych Denies mood swings and Denies paranoia Endo Reports as per HPI Satish/Lymph Reports as per HPI Aller/Immun Reports as per HPI Physical exam (Primary Care) Vital Signs: Last Vital Signs Pulse 80 03/03/24 08:45 BP 120/78 03/03/24 08:45 Pulse Ox 98 03/03/24 08:45 Oxygen Delivery Method Room Air 03/03/24 08:45 BMI result Body Mass Index 27.2 Tobacco/Smoking Status: Tobacco use Status Tobacco use date assessed 03/03/24 03/03/24 08:45 Patient Tobacco Use Status Never used Tobacco 03/03/24 08:45 e-Cigarette/Vaping Use Never Used 03/03/24 08:45 PHQ-9: PHQ-9 Score PHQ-9: Total score 0 03/03/24 08:45 Depression Screening Interpretation: Negative Thrive Assessment: Date of Thrive Assessment Date Thrive assessed 03/03/24 03/03/24 08:45 Currently or been in a relationship where the following occur: No concerns reported Const General: cooperative, comfortable and no acute distress Orientation/consciousness: patient oriented x3 HENMT Other: Left ear within normal limit, right ear has excessive wax so I was not able to see the tympanic membrane, patient is feeling uncomfortable with exam, external ear with no erythema or swelling Ear canal clear Head: Yes normocephalic and Yes atraumatic Eyes General: appearance normal, both eyes and all related structures Pupils: Equal, round and reactive pupils present EOM: EOMs intact bilaterally Neck Neck: Yes supple and No lymphadenopathy Thyroid: Thyroid normal Lymphatic: no lymphadenopathy noted Resp Effort & Inspection: normal respiratory effort and able to speak in complete sentences Auscultation: clear to auscultation bilaterally Cardio Heart sounds: S1 normal heart sound present and S2 normal heart sound present GI Palpation (GI): Soft to palpation and nontender Auscultation: normal bowel sounds General: Yes no CVA tenderness Back/Spine/Pelvis Back: no CVA tenderness Skin General skin exam: elasticity normal and turgor normal Neuro General: patient oriented x3 and gait normal Cranial nerves: Yes Equal, round and reactive pupils present Speech: No Abnormal speech present Sensory Exam: No Sensory deficit (Neuro) Coordination: tandem gait normal and Romberg test negative Extrem General: Yes normal exam except as noted and No edema Coding Level of Care Code Est Pt Level 3 (08799) Est Pt Prev Care 40-64y(81182) Diagnoses Encounter for general adult medical examination with abnormal findings Z00.01 Right otitis media, unspecified otitis media type H66.91 Otitis media type: unspecified Melanoma of face C43.30 Additional Codes BRII-7 Assessment Billing - BRII-7 Assessment Tool: BRII-7 Assessment 88180 ([id number]) PHQ-9 - 56236 - PHQ-9 Billing: Yes ([id number]) Assessment & Plan Assessment & Plan (1) Encounter for general adult medical examination with abnormal findings: Code(s): Z00.01 - Encounter for general adult medical examination with abnormal findings Category: Medical (2) Otitis media, right: Code(s): H66.91 - Otitis media, unspecified, right ear Category: Medical Qualifiers: Otitis media type: unspecified Qualified Code(s): H66.91 - Otitis media, unspecified, right ear (3) Melanoma of face: Code(s): C43.30 - Malignant melanoma of unspecified part of face Category: Medical Plan Chief Complaint Patient came in for physical exam and also is complaining of Swollen and itchy right ear with possible infection. 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 - Awaiting mammogram appointment; last mammogram in 2021. - Recent laboratory tests in July indicate normal CBC, kidney function, liver enzymes, and no anemia or high cholesterol. Assessment and Plan 42-year-old female with a history of recent upper respiratory symptoms presenting with a swollen and itchy right ear, suggestive of acute otitis media. The patient reports a two-week history of a cough that has lessened in severity and denies other respiratory symptoms currently. Ear examination reveals ear wax impaction, potentially contributing to the patient's symptoms. Current lab workup from July indicates no hematological or metabolic issues, and the patient awaits mammogram scheduling. Notable for melasma, which the patient manages with topical products. 1. Acute Otitis Media Initiated treatment with an antibiotic for suspected acute otitis media. Patient instructed on the use of ibuprofen for pain and inflammation management. Encouraged to follow up if symptoms do not improve. 2. Melasma Patient continues topical treatment for melasma with noted improvement. No changes to current regimen recommended. 3. Ear Wax Impaction Advised the use of fwya-giz-ebnwfez wax softening ear drops after completing antibiotic therapy. Discussed self-care to clear ear wax following its softening with warm water during showers. Patient Instructions - Take prescribed antibiotics as directed. - Use ibuprofen for pain and inflammation twice daily with meals. - Obtain ear softening drops from the pharmacy after finishing antibiotics and use as instructed. - Monitor ear symptoms and return for follow-up if symptoms worsen or do not improve. - Await clinic-arranged mammogram and ensure scheduling is followed up. - Maintain current topical regimen for melasma, noting improvements. Medications: New amoxicillin-pot clavulanate 500-125 mg 1 tab PO Q8H 7 days 21 tabs 0RF
== END 2024-03-03 09:08 | disposition home or self-care (01) ==
PROVIDERS: PCP Internal Medicine; Visit Provider Internal Medicine
DX: Z00.00 Encounter for general adult medical examination without abnormal findings (principal); H66.91 Otitis media, unspecified, right ear; C43.30 Malignant melanoma of unspecified part of face

== ENCOUNTER → 2024-03-03 08:44 | Outpatient (BNVA) | payer OTHER, SELFPAY | PROVIDERS: PCP Internal Medicine; Visit Provider Internal Medicine | DX: Z00.01 Encounter for general adult medical examination with abnormal findings (principal); H66.91 Otitis media, unspecified, right ear; H61.21 Impacted cerumen, right ear; C43.30 Malignant melanoma of unspecified part of face | CPT/HCPCS: 96127 ==

== ENCOUNTER 2024-04-16 10:02 | Outpatient (REF) | payer OTHER, SELFPAY ==
--- OUTSIDE RECORDS SUMMARY | 2024-04-16 10:11 | XMS_ITS | Continuity of Care Document ---
Author Organization [facility] Address [address] [place] [address] [address] [place] [address] Phone Care Team Providers Care Trouble Clerk Name Role Phone Gasper MCKENZIE, SUREKHA, Juan Antonio FLORES Unavailable U navailable Allergies, Adverse Reactions, Alerts Substance Reaction Status Criticality No Known Allergies Active No Inform ation Procedures Procedure Date No Charge For Services Sngl/mx Inj Scleros-veins; Figueroa 23 Office/Outpt E&M Established 15 Mins Nov PT Did Not Receive Services PT Did Not Receive Services Advance Directives Directive Yes / No Effective Date File Name No Information Encounters Encounter Description Practice Location Reason(s) For Visit Diagnoses Date Provider Providers Copied on Encounter [facility], [address] [place] [address] [address], [place], [id number], [place] tel:[phone] CVR - [place] - [place] Nevus, non-neoplast ic 3 Gasper MCKENZIE, SANDRA IRBY. [address] [facility] [address], [place], [place], [id number] , [place]. tel:[phone] Referring Provider: Cheyenne Irwin MD, [address] [place] [address], [place], [address]. tel:[phone] [facility], [address] [place] [address] [address], [place], [id number], [place] tel:[phone] CV[place] - [place] Nevus, non-neoplast ic 3 Iban Beckford . [address] [place] [address], [place] [address], [place], [place], [id number] , [place]. tel:[phone] Referring Provider: Cheyenne Irwin MD, [address], [place], [address]. tel:[phone] Office/Outpt E&M Established 15 Mins [facility], [address] [place] [address] [facility] [address], [place], [id number], [place] tel:[phone] CV[place] - [place] Spider Veins - (Telangiecta hollie) 3 Mustapha MCKENZIE FACS T STACEY [facility]. [address] [place] [address], [place], [address], [place]. tel:[phone] Referring Provider: Cheyenne Irwin MD, [address], [place], [address]. tel:[phone] [facility], [address] [place] [address] [facility] [address], [place], [id number], [place] tel:[phone] CVR - [place] No Information 3 Mustapha MCKENZIE FACS T SANDRA [facility]. [address] [place] [address], [place], [address], [place]. tel:[phone] Referring Provider: Cheyenne Irwin MD, [address], [place], [address]. tel:[phone] [facility], [address] [place] [address] [address], [place], [id number], [place] tel:[phone] CVR - [facility] No Information 3 Mustapha MCKENZIE FACS T STACEY [facility]es. [address] [place] [address], Suite [facility], [place], [address], [place]. tel:[phone] Referring Provider: Cheyenne Irwin MD, [address], [place], [address]. tel:[phone] Family History Family Member Type Diagnosis Age At Onset No Information Payers Payer name Insurance type Covered republican ID Vikas gee(s) Self Pay 09 Social History Type Description Quantity Date Captured Comments Alcohol Use Details No Caffeine Use Details Unknown Tobacco Use Status Current non-smoker Smoking Status Never smoker Non-Smoking Tobacco Use Details : No Details Available : No Details Available Sex Female Chief Complaint And Reason For Visit No Information Reason For Referral Reason For Referral No Information History Of Present Illness Encounter Date Complaint History Of Prese nt Illness No Information Functional Status Date Functional Assessmen t No Information Instructions Date Instruction Additional Infor mation No Information Assessments Type Assessment Date assessment Nevus, non-neoplastic 3 Patient Care Teams Name Effective Dates (start - stop) Status Members No Information
== END 2024-04-16 10:03 | disposition home or self-care (01) ==
LOC: HO.MAMMO 10:02
PROVIDERS: PCP Internal Medicine; Visit Provider Advanced Practice Midwife
DX: Z12.31 Encounter for screening mammogram for malignant neoplasm of breast (principal)
CPT/HCPCS: 77063; 77067

== ENCOUNTER → 2024-04-16 10:15 | Outpatient (BNV) | payer OTHER, SELFPAY | PROVIDERS: PCP Internal Medicine; Visit Provider Internal Medicine | DX: Z12.31 Encounter for screening mammogram for malignant neoplasm of breast (principal) | CPT/HCPCS: 77063; 77067 ==